=== PATIENT | female | born 1990 | race African-American/Black ===

== ENCOUNTER 2022-06-28 16:24 | Emergency (ER) | payer SELFPAY ==
[2022-06-28 16:35] VITALS: BP 135/88; PULSE 101; RESP 18; TEMP 36.3; O2SAT 98
--- NOTE | 2022-06-28 17:32 | PC.NURSE ---
Pt states she is leaving without being seen.
== END 2022-06-28 18:57 | disposition left against medical advice (07) ==
LOC: ANHED 18:51
DX: Z04.1 Encounter for examination and observation following transport accident (principal)
CPT/HCPCS: 99199